=== PATIENT | female | born 1995 ===

== ENCOUNTER → 2021-08-01 23:15 | Observation (INO) ==
[2021-08-01 21:41] LABS: Bacteria,Urine Few per hpf (None-Few); Bilirubin,Urine Negative (Negative); Blood,Urine Negative (Negative); Clarity,Urine Turbid (Clear); Color,Urine Light-Yellow (Yellow); Glucose,Urine (UA) Normal (Normal); Ketones,Urine Trace mg/dL (Negative); Leukocyte Esterase,Urine Trace (Negative); Nitrite,Urine Negative (Negative); Protein,Urine Trace mg/dL (Neg-Trace); RBC,Urine 0-3 per hpf (0-3); Specific Gravity,Urine 1.015 (1.010-1.025); Squamous Epithelial Cell,Urine Moderate per hpf (None-Few); Urobilinogen,Urine Normal (Normal)
== END | disposition home or self-care (01) ==
LOC: 1NENULAB
PROVIDERS: ADMIT Student in an Organized Health Care Education/Training Program; ATTEND Student in an Organized Health Care Education/Training Program

== ENCOUNTER 2021-08-05 19:47 | Inpatient (IN) ==
[~2021-08-05 19:47] MED LIST: EPHEDrine 50 MG/ML VIAL IVP PRN; Epidural Premix (fent/bupiv) 110 ML EP SCH
[2021-08-05] MEDS ORDERED: Ringers Solution, Lactated 1,000 ML ONE (20:06)
[2021-08-05] MEDS ORDERED: Metoclopramide 10 MG/2 ML VIAL IVP PRN (20:10)
[2021-08-05] MEDS ORDERED: Famotidine 20 MG/2 ML VIAL IVP PRN (20:10)
[2021-08-05] MEDS ORDERED: Naloxone 0.4 MG/ML INJ IVP PRN (20:10)
[2021-08-05] MEDS ORDERED: Penicillin G Potassium 5,000,000 UNIT in 0.9 % Sodium Chloride Mini Bag 100 ML IVPB ONE (20:10)
[2021-08-05] MEDS ORDERED: Ringers Solution, Lactated 1,000 ML IVC SCH (20:15)
[2021-08-05 20:36] LABS: Basophils % 0.3 %; Eosinophils # 0.7 K/mcL (0.0-0.6); Eosinophils % 5.9 %; Hematocrit 37.4 % (35.3-44.9); Hemoglobin 12.3 g/dL (11.5-15.4); Immature Granulocytes % 0.7 % (0-4); Lymphocytes # 1.7 K/mcL (0.6-4.6); Lymphocytes % 15.8 %; Mean Corpuscular HGB Conc 32.9 g/dL (31.6-35.5); Mean Corpuscular Hemoglobin 29.4 pg (28.0-33.3); Mean Corpuscular Volume 89.5 fL (83.0-100.0); Mean Platelet Volume 9.6 fL (9.4-12.4); Monocytes # 0.6 K/mcL (0.0-1.3); Monocytes % 5.4 %; Neutrophils # 7.9 K/mcL (1.6-8.9); Platelet Count 328 K/mcL (140-400); Red Blood Count 4.18 M/mcL (3.82-4.97); Red Cell Distribution Width 14.6 % (11.5-14.5); Segmented Neutrophils % 71.9 %
[2021-08-05 20:43] LABS: Amphetamine Screen,Urine Negative ng/mL (Cutoff=1000); Barbiturate Screen,Urine Negative ng/mL (Cutoff=200); Benzodiazepines Screen,Urine Negative ng/mL (Cutoff=200); Cannabinoid Screen,Urine Negative ng/mL (Cutoff = 50); Cocaine Screen,Urine Negative ng/mL (Cutoff= 300); Opiate Screen,Urine Negative ng/mL (Cutoff=300); Phencyclidine Screen,Urine Negative ng/mL (Cutoff=25)
[2021-08-05] MEDS: Betamethasone Acet/SodPhos 30 MG/5 ML VIAL IM SCH (20:55)
[2021-08-05 21:33] LABS: Estimated Average Glucose 114 mg/dl; Hemoglobin A1C 5.6 %
[2021-08-05] MEDS: Magnesium Sulf 20 gm/SW 500mL 20 GM/500 ML IV.SOLN IVC SCH (21:56)
[2021-08-06] MEDS: Penicillin G Potassium 2,500,000 UNIT/105 ML MLS IVPB SCH ×6 (02:08→21:33)
[2021-08-06] MEDS ORDERED: Calcium Gluconate 1,000 MG/10 ML VIAL ONE (03:13)
[2021-08-06 04:02] LABS: Influenza A PCR Negative (Negative); Influenza B PCR Negative (Negative); Resp. Syncytial Virus PCR Negative (Negative)
[2021-08-06 04:07] LABS: SARS-CoV-2 by PCR (In House) Negative (Negative)
[2021-08-06] MEDS: Magnesium Sulf 20 gm/SW 500mL 20 GM/500 ML IV.SOLN IVC SCH (07:44)
[2021-08-06] MEDS: Betamethasone Acet/SodPhos 30 MG/5 ML VIAL IM SCH (21:12)
[2021-08-07] MEDS: Penicillin G Potassium 2,500,000 UNIT/105 ML MLS IVPB SCH ×2 (08:10→12:18)
== END 2021-08-07 15:47 | disposition home or self-care (01) | DRG 566 ==
LOC: 1NENULAB
PROVIDERS: ADMIT Registered Nurse; ATTEND Registered Nurse

== ENCOUNTER 2021-09-07 06:19 | Inpatient (IN) ==
[~2021-09-07 06:19] MED LIST changes: +*HR* Oxytocin 10 UNIT/ML VIAL ONE; -EPHEDrine 50 MG/ML VIAL IVP PRN; -Epidural Premix (fent/bupiv) 110 ML EP SCH; +Famotidine 20 MG/2 ML VIAL IVP PRN; +Lidocaine 1% 20 ML MDV ONE; +Metoclopramide 10 MG/2 ML VIAL IVP PRN; +Naloxone 0.4 MG/ML INJ IVP PRN; +Oxytocin 20 units/ LR 1000 mL 20 UNIT/1,000 ML BAG IVC ONE; +Ringers Solution, Lactated 1,000 ML ONE
[2021-09-07 06:41] LABS: Basophils % 0.2 %; Eosinophils # 0.1 K/mcL (0.0-0.6); Eosinophils % 0.3 %; Hematocrit 37.1 % (35.3-44.9); Hemoglobin 12.8 g/dL (11.5-15.4); Immature Granulocytes % 0.5 % (0-4); Lymphocytes # 1.4 K/mcL (0.6-4.6); Lymphocytes % 9.6 %; Mean Corpuscular HGB Conc 34.5 g/dL (31.6-35.5); Mean Corpuscular Hemoglobin 30.3 pg (28.0-33.3); Mean Corpuscular Volume 87.7 fL (83.0-100.0); Mean Platelet Volume 9.9 fL (9.4-12.4); Monocytes # 0.5 K/mcL (0.0-1.3); Monocytes % 3.7 %; Neutrophils # 12.5 K/mcL (1.6-8.9); Platelet Count 302 K/mcL (140-400); Red Blood Count 4.23 M/mcL (3.82-4.97); Red Cell Distribution Width 13.9 % (11.5-14.5); Segmented Neutrophils % 85.7 %; White Blood Count 14.6 K/mcL (4.3-11.1)
[2021-09-07 07:41] LABS: Influenza A PCR Negative (Negative); Influenza B PCR Negative (Negative); Resp. Syncytial Virus PCR Negative (Negative)
[2021-09-07 08:04] LABS: SARS-CoV-2 by PCR (In House) Negative (Negative)
[2021-09-07] MEDS ORDERED: Rho Immune Globulin 1,500 UNIT SYRINGE IM PRN (08:16)
[2021-09-07] MEDS ORDERED: Measles/Mumps/Rubella Vacc 0.5 ML VIAL SQ PRN (08:16)
[2021-09-07] MEDS ORDERED: Lanolin 7 G OINT...G. TP PRN (08:16)
[2021-09-07] MEDS ORDERED: *HR* Oxytocin 10 UNIT/ML VIAL IM ONE (08:16)
[2021-09-07] MEDS ORDERED: Benzocaine/Menthol 56 GM AEROSOL SPRAY TP PRN (08:16)
[2021-09-07] MEDS ORDERED: Ondansetron ODT 4 MG TAB.RAPDIS SL PRN (08:16)
[2021-09-07] MEDS: Prenatal Vit/FA 1 EACH TABLET PO SCH (08:24)
[2021-09-07] MEDS: Ibuprofen 600 MG TABLET PO SCH ×3 (08:25→21:56)
[2021-09-07] MEDS: Acetaminophen 325 MG TABLET PO SCH ×2 (14:36→21:55)
[2021-09-07 20:44] VITALS: O2SAT 97
[2021-09-08 04:08] LABS: Basophils % 0.2 %; Eosinophils # 0.2 K/mcL (0.0-0.6); Eosinophils % 1.5 %; Hematocrit 34.6 % (35.3-44.9); Hemoglobin 11.6 g/dL (11.5-15.4); Immature Granulocytes % 0.5 % (0-4); Lymphocytes # 2.6 K/mcL (0.6-4.6); Lymphocytes % 20.1 %; Mean Corpuscular HGB Conc 33.5 g/dL (31.6-35.5); Mean Corpuscular Volume 89.4 fL (83.0-100.0); Mean Platelet Volume 9.8 fL (9.4-12.4); Monocytes # 0.9 K/mcL (0.0-1.3); Monocytes % 6.7 %; Neutrophils # 9.3 K/mcL (1.6-8.9); Platelet Count 290 K/mcL (140-400); Red Blood Count 3.87 M/mcL (3.82-4.97); Red Cell Distribution Width 14.1 % (11.5-14.5); White Blood Count 13.1 K/mcL (4.3-11.1)
[2021-09-08 07:30] VITALS: BP 121/74; PULSE 62; TEMP 98
[2021-09-08] MEDS: Ibuprofen 600 MG TABLET PO SCH ×2 (09:03→16:31)
[2021-09-08] MEDS: Prenatal Vit/FA 1 EACH TABLET PO SCH (09:03)
[2021-09-08] MEDS: Acetaminophen 325 MG TABLET PO SCH ×2 (09:03→16:30)
== END 2021-09-08 18:03 | disposition home or self-care (01) | DRG 560 ==
LOC: 1NENULAB → 1NENUOBS 07:55
PROVIDERS: ADMIT Obstetrics & Gynecology; ATTEND Obstetrics & Gynecology